=== PATIENT | female | born 1985 | race Caucasian/White ===

== ENCOUNTER 2016-07-06 20:52 | Emergency (ER) | payer OTHER ==
[2016-07-06] MEDS ORDERED: DEXAMETHASONE SOD PHOS 10 MG/1 ML VIAL ONE (22:42)
[2016-07-06] MEDS ORDERED: AZITHROMYCIN 250 MG TABLET ONE (22:42)
[2016-07-06] MEDS ORDERED: EPINEPHRINE 1 MG/ML 1ML AMP ONE (23:10)
[2016-07-06] MEDS ORDERED: DIPHENHYDRAMINE HCL 50 MG/1 ML VIAL ONE (23:10)
[2016-07-06] MEDS ORDERED: RACEMIC EPINEPHRINE 2.25% 0.5 ML DOSE ONE (23:11)
[2016-07-06] MEDS ORDERED: ALBUTEROL/IPRATROPIUM 2.5/0.5 MG 3 ML/EACH DOSE ONE (23:11)
[2016-07-06] MEDS ORDERED: SODIUM CL FOR INHALATION 3 ML DOSE ONE (23:11)
[2016-07-06] MEDS ORDERED: FAMOTIDINE 10 MG/ML 2ML VIAL ONE (23:12)
[2016-07-06] MEDS ORDERED: PREDNISONE 20 MG TABLET ONE (23:43)
== END 2016-07-07 00:16 | disposition home or self-care (01) ==
LOC: ED 20:52
DX: J02.0 Streptococcal pharyngitis (principal); T78.2XXA Anaphylactic shock, unspecified, initial encounter; I10 Essential (primary) hypertension; E78.00 Pure hypercholesterolemia, unspecified; G89.29 Other chronic pain; M54.9 Dorsalgia, unspecified; F17.210 Nicotine dependence, cigarettes, uncomplicated; Z79.899 Other long term (current) drug therapy; F31.9 Bipolar disorder, unspecified; F41.9 Anxiety disorder, unspecified; Z79.1 Long term (current) use of non-steroidal anti-inflammatories (NSAID); Z79.52 Long term (current) use of systemic steroids; Z88.1 Allergy status to other antibiotic agents; Z88.0 Allergy status to penicillin; Z88.8 Allergy status to other drugs, medicaments and biological substances